=== PATIENT | male | born 2000 | race Caucasian/White ===

== ENCOUNTER 2020-07-02 13:35 | Emergency (ER) | payer OTHER ==
[2020-07-02 14:43] LABS: BASOPHIL 0.8 % (0-2); EOSINOPHIL 0.5 % (0-5); HCT 43.8 % (42.0-52.0); HGB 15.7 g/dl (13.2-18.0); LYMPHOCYTE 14.9 % (15-48); MCH 30.8 pg (25.0-31.0); MCHC 35.8 g/dL (32.0-36.0); MCV 85.9 fL (78.0-100.0); MPV 8.9 fL (6.0-9.5); NEUTROPHIL 74.5 % (41-80); NRBC 0; PLT 266 K/uL (150-400); RDW 11.9 % (11.5-14.0); WBC 6.5 K/uL (4.0-10.5)
[2020-07-02 15:05] LABS: ALBUMIN 4.1 g/dL (3.4-5.0); BILIRUBIN - TOTAL 0.3 mg/dL (0.2-1.0); BUN/CREAT RATIO (CALC) 9.8 RATIO; CREATININE 0.82 mg/dL (0.67-1.17); GLOBULIN (CALCULATION) 2.6 g/dL; POTASSIUM 4.1 mmol/L (3.5-5.1); TOTAL PROTEIN 6.7 g/dL (6.4-8.2)
[2020-07-02 15:35] LABS: BILIRUBIN NEGATIVE (NEGATIVE); BLOOD NEGATIVE Ery/uL (NEGATIVE); CLARITY CLEAR (CLEAR); COLOR YELLOW (YELLOW); GLUCOSE (U) NORMAL (NORMAL); LEUKOCYTES NEGATIVE Leu/uL (NEGATIVE); NITRITE NEGATIVE (NEGATIVE); PROTEIN NEGATIVE (NEGATIVE); SPECIFIC GRAVITY 1.025 (1.001-1.030); UROBILINOGEN 0.2 mg/dL (0.2-1.0); pH 6.5 (5.0-9.0)
== END 2020-07-02 16:38 | disposition home or self-care (01) ==
LOC: FER 13:35
PROVIDERS: Nurse Practitioner Family
DX: R10.9 Unspecified abdominal pain (principal); R11.10 Vomiting, unspecified; Z88.8 Allergy status to other drugs, medicaments and biological substances
CPT/HCPCS: 36415; 80053; 81003; 85025; 87339; J7030; Q9967

== ENCOUNTER 2020-07-13 14:22 | Day surgery (SDCO) | payer OTHER ==
[2020-07-13 15:05] LABS: BASOPHIL 0.5 % (0-2); EOSINOPHIL 0.3 % (0-5); HCT 48.5 % (42.0-52.0); HGB 16.9 g/dl (13.2-18.0); LYMPHOCYTE 11.7 % (15-48); MCH 30.2 pg (25.0-31.0); MCHC 34.8 g/dL (32.0-36.0); MCV 86.6 fL (78.0-100.0); MONOCYTE 10.9 % (0-12); MPV 8.8 fL (6.0-9.5); NEUTROPHIL 76.3 % (41-80); NRBC 0; PLT 300 K/uL (150-400); WBC 10.3 K/uL (4.0-10.5)
[2020-07-13 15:09] LABS: BILIRUBIN 1+ mg/dL (NEGATIVE); BLOOD NEGATIVE Ery/uL (NEGATIVE); CLARITY CLEAR (CLEAR); COLOR YELLOW (YELLOW); GLUCOSE (U) NORMAL (NORMAL); LEUKOCYTES NEGATIVE Leu/uL (NEGATIVE); NITRITE NEGATIVE (NEGATIVE); PROTEIN NEGATIVE (NEGATIVE); SPECIFIC GRAVITY >=1.030 (1.001-1.030); UROBILINOGEN 0.2 mg/dL (0.2-1.0)
[2020-07-13 15:32] LABS: ALBUMIN 4.6 g/dL (3.4-5.0); BILIRUBIN - TOTAL 1.5 mg/dL (0.2-1.0); BUN/CREAT RATIO (CALC) 8.6 RATIO; CREATININE 0.81 mg/dL (0.67-1.17); GLOBULIN (CALCULATION) 3.1 g/dL; POTASSIUM 3.8 mmol/L (3.5-5.1); TOTAL PROTEIN 7.7 g/dL (6.4-8.2)
[2020-07-14] MEDS ORDERED: PRILOSEC20 MG PO (06:45)
--- NOTE | 2020-07-14 13:24 | NUR ---
LIVES WITH PARENTS; PT REPORTS HE IS INDEPENDENT WITH CARE
--- NOTE | 2020-07-14 13:24 | NUR ---
PLEASE ADVISE OF ANY DISCHARGE NEEDS
[2020-07-14] MEDS ORDERED: AUGMENTIN 500-1 EACH PO (15:32)
[2020-07-14] MEDS ORDERED: NORCO 5-325 TA1 EACH PO (15:33)
== END 2020-07-14 16:25 | disposition home or self-care (01) ==
LOC: FER 14:22 → FMS 19:53
PROVIDERS: Nurse Practitioner Family; ADMIT Surgery
DX: K35.80 Unspecified acute appendicitis (principal); K21.9 Gastro-esophageal reflux disease without esophagitis; F17.290 Nicotine dependence, other tobacco product, uncomplicated; K59.09 Other constipation; Z79.899 Other long term (current) drug therapy; Z88.8 Allergy status to other drugs, medicaments and biological substances; Z20.822 Contact with and (suspected) exposure to COVID-19
CPT/HCPCS: 36415; 80053; 81003; 85025; 94010; C9113; G0378; J1170; J1885; J2250; J2405; J2543; J2550; J2710; J3010; J7030; J7120; Q9967; U0002